=== PATIENT | female | born 1950 | race Caucasian/White ===

== ENCOUNTER → 2017-08-01 | Outpatient (CLI) | payer MEDICARE ==
[~2017-08-01] MED LIST: AMLO5 PO; ASPI81CH PO; B-COMPLEX WITH1 EAC1 PO; D3-20002000 UNIT PO; ESCI10 PO; FISH1000 PO; Hair, Skin & N1 EACH PO; Iron Chews15 MG PO; KRILL OIL 3001 EACH PO; LIVALO2 MG PO; Magnesium500 M1 PO; SIMV10 PO; Toprol Xl50 MG PO; ZESTORETIC 20-1 EACH PO
[2017-08-02 15:57] LABS: HPV Genotype 16 Not Detected (NOTDET); HPV Genotype 18 Not Detected (NOTDET)
[2017-08-08 09:23] LABS: HPV High Risk Other Not Detected (NOTDET)
== END | disposition home or self-care (01) ==
LOC: OLS 10:29
PROVIDERS: Obstetrics & Gynecology Gynecology
DX: Z12.4 Encounter for screening for malignant neoplasm of cervix (principal)
CPT/HCPCS: 87624; G0123

== ENCOUNTER 2017-11-13 06:05 | Day surgery (SDC) | payer MEDICARE ==
[~2017-11-13] VITALS: Ht 167.6 cm; Wt 94.1 kg
== END 2017-11-13 11:15 | disposition home or self-care (01) ==
LOC: MHTC 06:05
DX: I20.8 Other forms of angina pectoris (principal); R94.30 Abnormal result of cardiovascular function study, unspecified; E66.9 Obesity, unspecified; E78.00 Pure hypercholesterolemia, unspecified; I10 Essential (primary) hypertension; Z82.49 Family history of ischemic heart disease and other diseases of the circulatory system; E78.5 Hyperlipidemia, unspecified
CPT/HCPCS: 93458; 99152; C1769; C1894; J0690; J1644; J2250; J3010; J7030; J7040; Q9967

== ENCOUNTER → 2018-10-02 | Outpatient (CLI) | payer MEDICARE ==
[2018-10-04 14:07] LABS: HPV 16 Negative (Negative); HPV 18 Negative (Negative); HPV OTHER HR TYPES Negative (Negative)
== END | disposition home or self-care (01) ==
LOC: LAB 17:32 → LAB SHORT 17:32
PROVIDERS: Obstetrics & Gynecology Gynecology
DX: Z12.4 Encounter for screening for malignant neoplasm of cervix (principal)
CPT/HCPCS: 87624; G0123